=== PATIENT | male | born 1975 | race Caucasian/White ===

== ENCOUNTER 2019-08-07 05:07 | Emergency (ER) | payer MEDICAID ==
[~2019-08-07] VITALS: Ht 170.2 cm; Wt 60.0 kg
[2019-08-07 12:59] VITALS: BP 104/57
== END 2019-08-07 13:00 | disposition home or self-care (01) ==
LOC: ER 05:07
DX: J06.9 Acute upper respiratory infection, unspecified (principal); J44.9 Chronic obstructive pulmonary disease, unspecified; F12.10 Cannabis abuse, uncomplicated; F17.210 Nicotine dependence, cigarettes, uncomplicated
CPT/HCPCS: 99282

== ENCOUNTER 2019-08-31 03:20 | Emergency (ER) | payer MEDICAID ==
[~2019-08-31] VITALS: Ht 167.6 cm; Wt 64.0 kg
[2019-08-31 03:58] LABS: BASOPHILS % 0.6 % (0.0-2.0); EOSINOPHILS % 2.5 % (0.0-5.0); HEMATOCRIT. 42.3 % (42.0-52.0); HEMOGLOBIN. 14.4 g/dL (14.0-18.0); LYMPHOCYTES % 42.2 % (20.0-50.0); MEAN CORPUSCULAR HEMOGLOBIN 32.5 pg (28.0-32.0); MEAN CORPUSCULAR VOLUME 95.6 fL (80.0-94.0); MEAN PLATELET VOLUME 7.9 fl (7.4-10.4); MONOCYTES % 8.3 % (2.0-8.0); NEUTROPHILS % 46.4 % (40.0-76.0); PLATELET 290 x1000/uL (130-400); RED BLOOD CELL COUNT 4.43 mill/uL (4.7-6.1); RED CELL DISTRIBUTION WIDTH 12.7 % (11.6-14.6)
[2019-08-31 04:04] LABS: CHLORIDE 104 mEq/L (98-107)
[2019-08-31 04:05] LABS: PROTHROMBIN TIME 10.2 sec (9.6-11.0)
[2019-08-31] MEDS ORDERED: MORPHINE SULFATE 4 MG/ML CPJ (NOT FOR IM USE) IV ONE (04:45)
[2019-08-31] MEDS ORDERED: ONDANSETRON HCL 4MG/2ML INJ IV ONE (04:45)
[2019-08-31 06:33] LABS: CLARITY URINE CLEAR (CLEAR); COLOR URINE YELLOW (YELLOW); KETONES URINE TRACE (NEGATIVE); LEUKOCYTE ESTERASE URINE NEGATIVE (NEGATIVE); NITRITE URINE NEGATIVE (NEGATIVE); OCCULT BLOOD URINE NEGATIVE (NEGATIVE); PH URINE 6.5 (4.5-8.0); PROTEIN URINE 2+ (NEGATIVE); SPECIFIC GRAVITY URINE 1.024 (1.005-1.030)
[2019-08-31 12:00] VITALS: BP 112/71
== END 2019-08-31 13:32 | disposition home or self-care (01) ==
LOC: ER 03:20
DX: K59.00 Constipation, unspecified (principal); R10.30 Lower abdominal pain, unspecified; J44.9 Chronic obstructive pulmonary disease, unspecified; F32.9 Major depressive disorder, single episode, unspecified; F43.10 Post-traumatic stress disorder, unspecified; F12.10 Cannabis abuse, uncomplicated; Z98.890 Other specified postprocedural states
CPT/HCPCS: 36415; 74018; 74176; 80053; 81003; 83690; 85025; 85610; 96374; 96375; 99284; J2270; J2405; Z7610